=== PATIENT | female | born 1995 | race Caucasian/White ===

== ENCOUNTER → 2023-08-11 13:59 | Outpatient (REF) | payer OTHER, SELFPAY | LOC: RAD 13:59 | PROVIDERS: ATTENDING PHYSICIAN Advanced Practice Midwife; FAMILY PHYSICIAN Family Medicine | DX: R10.2 Pelvic and perineal pain (principal) | CPT/HCPCS: 76830; 76856 ==

== ENCOUNTER → 2023-09-08 13:33 | Outpatient (REF) | payer OTHER, SELFPAY | LOC: RAD 13:33 | PROVIDERS: ATTENDING PHYSICIAN Advanced Practice Midwife; FAMILY PHYSICIAN Family Medicine | DX: N83.202 Unspecified ovarian cyst, left side (principal) | CPT/HCPCS: 76856 ==

== ENCOUNTER 2023-10-18 10:48 | Emergency (ER) | payer OTHER, SELFPAY ==
[2023-10-18 10:49] VITALS: BP 110/67
--- NOTE | 2023-10-18 11:19 | ED.GENMED ---
History of Present Illness
General
Chief Complaint: Abdominal Pain
Source: patient and family
Time Seen by Provider: 10/18/23 11:07
History of Present Illness
History of Present Illness:
28-year-old female with past medical history of anxiety and depression, PTSD, frequent ovarian cyst presenting to the emergency department for evaluation of lower abdominal pain that has felt similar to previous ovarian cyst in the past however
patient states she felt a little bit increased pain today and feels as if one of her ovarian cyst may have ruptured. Patient took some Motrin and Tylenol last night which did not give her much relief and decided to come to the ER today. She denies
any vaginal bleeding or discharge, urinary symptoms or bowel changes. She did not take anything for pain prior to arrival. She notes that 1 year ago she had surgical procedure to remove one of the cysts. Presently stating pain is tolerable.
Past History
Past History
ED Past Medical History: Psychiatric (Anxiety, depression) and Other (RSD, scoliosis, ovarian cyst, uti)
ED Past Surgical History: Other ([place] teeth)
Social History
Tobacco: Smoker
Alcohol: Occasional
Drug: None
Personal: Single
Living: with family
Employment: Employed
Family History
Family History: Other (Noncontributory)
Review of Systems
Review of Systems
All Other Systems: ROS reviewed and negative except as documented in HPI and ROS
Phy Exam
Physical Exam
Physical Exam:
GENERAL: Alert , in no apparent distress
EYE: clear conjunctiva b/l
HEAD: NCAT
ENT: o/p clr, mmm.
ABDOMEN: Soft, without focal tenderness, no r/g, no cvat
NEUROLOGICAL: Alert and oriented
SKIN: Warm and dry, skin intact.
MUSCULOSKELETAL: well perfused.
PSYCH: Normal and appropriate interaction.
Scores
Heart Failure Risk
Heart Failure Risk Score: Not Applicable
Heart Score for Chest Pain Patients
STEMI patient?: Not applicable
Withdrawal Assessment of Alcohol
Withdrawal Assessment Completed?: Not applicable
Course
Orders/Labs/Results
Orders:
Orders
10/18/23 11:15
Test Result ONCE
US Pelvis W Transvag Combined Urgent
Reason For Exam: lower abd pain, hx ovarian cysts
10/18/23 11:39
Beta Hcg Urine Qualitative Screen [HCG, Urine Qualitative Screen] Urgent
Date Specimen was Collected: 10/18/23
Time Specimen was Collected: 11:19
Urinalysis Reflex To Culture Urgent
Date Specimen was Collected: 10/18/23
Time Specimen was Collected: :19
Vital Signs
Initial and Last Documented VS:
Initial Vital Signs
Temp Pulse Resp BP Pulse Ox
98.9 F 73 16 110/67 100
10/18/23 10:49 10/18/23 10:49 10/18/23 10:49 10/18/23 10:49 10/18/23 10:49
Last Documented Vital Signs
Temp Pulse Resp BP Pulse Ox
98.1 F 68 20 117/61 100
10/18/23 13:56 10/18/23 13:56 10/18/23 13:56 10/18/23 13:56 10/18/23 13:56
MDM/Problems Addressed
Differential Diagnosis Includes:
Ovarian cyst, UTI, other surgical process such as appendicitis
MDM/Problems Addressed:
28-year-old female presenting emergency department for evaluation of lower abdominal pain that reportedly feels similar to previous episodes of ovarian cysts. Patient took some Motrin and Tylenol last night but did not have much relief. She is
currently stating pain is tolerable. Abdominal exam reassuring. Patient states she does not like IVs and is declining blood work. Will check urine as well as test. Ultrasound ordered. Patient declining anything for pain at present
time.
Chronic conditions affecting care: Other (Ovarian cysts)
*Radiology
Radiology exam reviewed: radiology read reviewed
*Pulse Oximetry
Patient hypoxic: no
*Critical Care Note
Total Time (30-74mins, 75-104mins- exclusive of procedures): Not Applicable
Data Reviewed
Review of Other/Old Records Reveals: Labs, Records and Radiology Studies
Source: patient and records
Patient Management
Escalation/DeEscalation of care consider admission/obs:
Patient's ultrasound shows bilateral complex ovarian cysts most consistent with hemorrhagic cyst. There is flow documented to both ovaries. Given patient's chronic history with ovarian cysts and the size of the cysts I am not concerned for ovarian
torsion. Advised continued NSAIDs/Tylenol and heating pad as needed. Prescription for Vicodin sent to pharmacy for patient to use for breakthrough pain as needed. Advised close follow-up with her [employer].
ED Attending Note
-
Portions of this chart may have been created with voice recognition software.� Occasional wrong word or��sound alike� substitutions may have occurred due to the inherent limitations of voice recognition software.
Discharge Plan
Departure
Patient Disposition: Home (Routine Discharge)
Date of Disposition: 10/18/23
Time of Disposition: 13:48
Patient with high blood pressure during this ER visit?: No
Discharge Problem:
Ovarian cyst
Instructions: Ovarian Cyst (DC)
Prescriptions:
New
hydrocodone-acetaminophen 5-300 mg tablet
1 tab PO BID PRN (Reason: Pain) Qty: 6 0RF
No Action
mirtazapine 15 MG tablet
15 mg PO HS
clonazepam [Klonopin] 1 mg Tablet
1 mg PO PRN PRN (Reason: anxiety)
Medical Marijuana
1 dose inhalation PRN PRN (Reason: Insomnia)
hydromorphone [Dilaudid] 2 mg tablet
2 mg PO Q4H Qty: 15 0RF
ibuprofen 600 mg tablet
600 mg PO Q6H PRN (Reason: pain/cramping) Qty: 45 0RF
oxycodone-acetaminophen [Percocet] 5-325 mg tablet
1 tab PO Q4HPRN PRN (Reason: pain) Qty: 10 0RF
oxycodone-acetaminophen [Percocet] 5-325 mg tablet
1 tab PO Q4H PRN (Reason: pain) Qty: 7 0RF
Referrals:
Warner Andrews DO [Family Provider] -
Interventions
Interventions:
*Risk Screen - Suicide Last Done: 10/18/23 10:49
*General Assessment Last Done: 10/18/23 10:49
*Neglect/Abuse Screening Last Done: 10/18/23 10:49
*ED COVID-19 Vaccine History Last Done: 10/18/23 10:49
*Nursing Disposition Last Done: 10/18/23 13:56
ED-Skxfuo-Smgydvkmmj Assessment Last Done: 10/18/23 11:54
Discharge Date and Time
Discharge Date/Time: 10/18/23 14:00
Print Language: MALTESE
[2023-10-18 11:56] LABS: Urine Albumin Trace (Neg - Trace); Urine Bilirubin Negative (Negative); Urine Character Clear (Clear); Urine Color Yellow; Urine Glucose Negative (Negative); Urine Ketone Negative (Negative); Urine Leukocyte Negative (Negative); Urine Nitrite Negative (Negative); Urine Occult Blood Negative (Negative); Urine Specific Gravity 1.015 (<1.030); Urine Urobilinogen Negative (Neg - 1+)
[2023-10-18 11:59] LABS: HCG, Urine Qualitative Screen Negative
[2023-10-18 13:56] VITALS: BP 117/61
== END 2023-10-18 14:00 | disposition home or self-care (01) ==
LOC: EMR 10:48
PROVIDERS: Physician Assistant Medical; EMERGENCY PHYSICIAN Emergency Medicine; FAMILY PHYSICIAN Family Medicine
DX: N83.291 Other ovarian cyst, right side (principal); N83.292 Other ovarian cyst, left side; F41.8 Other specified anxiety disorders; F43.10 Post-traumatic stress disorder, unspecified; F17.200 Nicotine dependence, unspecified, uncomplicated; Z87.440 Personal history of urinary (tract) infections
CPT/HCPCS: 99284; 76830; 76856; 81003; 81025

== ENCOUNTER → 2024-06-08 18:02 | Outpatient (REF) | payer OTHER, SELFPAY | LOC: WDC 18:02 | PROVIDERS: ATTENDING PHYSICIAN Nurse Practitioner Family | DX: Z12.31 Encounter for screening mammogram for malignant neoplasm of breast (principal); Z80.3 Family history of malignant neoplasm of breast | CPT/HCPCS: 77063; 77067 ==

== ENCOUNTER → 2024-06-17 14:51 | Outpatient (REF) | payer OTHER, SELFPAY | LOC: RCS 14:51 | PROVIDERS: ATTENDING PHYSICIAN Internal Medicine; FAMILY PHYSICIAN Nurse Practitioner Family | DX: R07.89 Other chest pain (principal); E66.9 Obesity, unspecified | CPT/HCPCS: 93306 ==